=== PATIENT | male | born 1950 | race Caucasian/White ===

== ENCOUNTER → 2016-10-27 | Outpatient (CLI) | payer OTHER ==
[~2016-10-27] MED LIST: ALLEGRA-D1 TAB.SR1 PO; CIPRO PO; FLONASE16 GM; NEXIUM PO; PROTONIX; TYLENOL #3
--- NOTE | ~2016-10-27 | CT4 ---
[facility] A Service of [facility] RADIOLOGY TEXT RESULTS PATIENT: DIPIKA NEUMANN [facility] #: [id number] AGE: [address]: Nilson Gonsales MD SEX: M ORDER DR: [id number] [facility] [address] [place], [place] [address] [id number] O MR#: [id number] Acc #: [id number] NAME: DIPIKA NEUMANN. : 1950 SEX: M STUDY DATE/TIME: 10/27/2016 UNIT: [facility] ROOM: STUDY DESCRIPTION: CT Abd and Pelv Wo Cont Attending Physician: Nilson Gonsales M.D. Referring Physician: Nilson Gonsales M.D. Ordering Physician: Nilson Gonsales M.D. Primary Care Physician: Nilson Gonsales M.D. MEDICAL IMAGING REPORT This report is preliminary unless electronic signature is present EXAM CT abdomen and pelvis without contrast 10/27/2016 1331 hours HISTORY 66-year-old man with complaint of right flank pain for 1 month. No prior history of kidney stones. COMPARISON None. TECHNIQUE Helical noncontrasted images were obtained from the lung bases through the pubic symphysis without oral or intravenous contrast. Sagittal and coronal reconstructions were performed. Total exam DLP 688 mGy-cm. This CT exam was performed with one or more of the following radiation dose reduction techniques: automatic exposure control, adjustment of mA and/or kV according to patient size, and iterative reconstruction. FINDINGS Images through the lung bases are clear. There are no nodules or effusions. The distal esophagus is normal. Noncontrasted images through the abdomen demonstrate a normal appearance to the liver, spleen, pancreas, gallbladder and bile ducts. The adrenal glands are normal. The kidneys demonstrate no mass or obstruction. Question is raised of a punctate nonobstructing stone in the upper pole of the right kidney. No ureteral calculi are seen. There is no ureterectasis. The bladder appears normal. The stomach is contracted, but normal in appearance. There is no small bowel distension or small bowel wall thickening. The terminal ileum and appendix are normal. There are a few diverticula of the ascending colon [facility] A Service of [facility] RADIOLOGY TEXT RESULTS PATIENT: DIPIKA NEUMANN LOCATION: [facility] : [birth year] UNIT #: [id number] AGE: [address]: Nilson Gonsales MD SEX: M ORDER DR: and the hepatic flexure of the colon, as well as scattered diverticula in the descending colon and sigmoid colon. There is no colonic or rectal wall thickening. The patient has a very tiny fat density hernia at the umbilicus. There is a left inguinal hernia present that contains a knuckle of the colon at the junction of the descending colon and sigmoid colon. This extends towards the scrotum. There is no evidence of obstruction or incarceration. IMPRESSION 1. There are no ureteral calculi or evidence of obstruction. Question is raised of a punctate stone in the upper pole of the right kidney, nonobstructing. 2. The patient has a left inguinal hernia containing a knuckle of the colon at the junction of descending colon and sigmoid colon that is not obstructed or incarcerated. 3. Normal appearance to the stomach, small bowel. 4. Scattered colonic diverticula without evidence of diverticulitis. STAT * RESULT Dictated by... Idalia Tesfaye M.D. THIS IS AN ELECTRONICALLY VERIFIED REPORT Idalia Tesfaye M.D. at 10/27/2016 2:33 PM Christina TD: 10/27/2016 13:53 JOB #: [id number] MEDICAL IMAGING REPORT Page 1 of 1 COPY
== END | disposition home or self-care (01) ==
LOC: CCAT 13:08
DX: R10.11 Right upper quadrant pain (principal); K40.90 Unilateral inguinal hernia, without obstruction or gangrene, not specified as recurrent; K57.30 Diverticulosis of large intestine without perforation or abscess without bleeding
CPT/HCPCS: 74176

== ENCOUNTER → 2016-12-11 | Outpatient (CLI) | payer OTHER ==
--- NOTE | ~2016-12-11 | US115 ---
[facility] A Service of [facility] RADIOLOGY TEXT RESULTS PATIENT: DIPIKA NEUMANN LOCATION: [facility] : 50 UNIT #: [id number] AGE: [address]: Naren Gonsales MD SEX: M ORDER DR: [id number] [facility] [address] [place], [place] [address] [id number] O MR#: [id number] Acc #: [id number] NAME: DIPIKA NEUMANN : 1950 SEX: M STUDY DATE/TIME: 12/11/2016 15:20 UNIT: [facility] ROOM: STUDY DESCRIPTION: US Scrotum and Contents Attending Physician: Naren Gonsales M.D. Referring Physician: Naren Gonsales M.D. Ordering Physician: Naren Gonsales M.D. Primary Care Physician: Nilson Gonsales M.D. MEDICAL IMAGING REPORT This report is preliminary unless electronic signature is present EXAM Ultrasound of scrotum and contents with color flow Doppler 12/11/2016 HISTORY Testicular pain for 3 months. Pain also in left lower quadrant of abdomen. Right testicular pain with no known injury. FINDINGS Vogel-scale images of the scrotum were obtained as well as Doppler waveform spectral analysis and color flow Doppler imaging. The right testicle measured 4.3 cm x 3.4 cm x 1.7 cm while the left testicle measured 4.2 cm x 2.1 cm x 2.8 cm. Both testes are homogeneous in echotexture and demonstrate no cystic or solid mass lesions. Color-flow Doppler images show normal blood flow to both testes. There is a 4 mm cyst or spermatocele on the left epididymis. The right epididymis is normal. IMPRESSION 1. The testes are normal bilaterally. No testicular mass is seen. Color-flow Doppler images show normal blood flow to both testes. 2. 4 mm cyst or spermatocele involving the left epididymis. Dictated by... Galen Menchaca M.D. THIS IS AN ELECTRONICALLY VERIFIED REPORT Galen Menchaca M.D. at 12/12/2016 2:14 PM JOSE/mirlande TD: 12/12/2016 08:03 JOB #: [id number] MEDICAL IMAGING REPORT [facility] A Service of [facility] RADIOLOGY TEXT RESULTS PATIENT: DIPIKA NEUMANN LOCATION: [facility] #: [id number] : [birth year] UNIT #: [id number] AGE: [address]: Naren Gonsales MD SEX: M ORDER DR: Page 1 of 1 COPY
== END | disposition home or self-care (01) ==
LOC: CGUS 14:47
DX: N50.82 Scrotal pain (principal); N50.811 Right testicular pain; R93.8 Abnormal findings on diagnostic imaging of other specified body structures
CPT/HCPCS: 76870; 93976